=== PATIENT | female | born 1990 | race African-American/Black ===

== ENCOUNTER 2022-02-12 21:55 | Emergency (ER) | payer BC ==
[~2022-02-12] VITALS: Ht 157.5 cm; Wt 99.8 kg
[2022-02-12 22:01] VITALS: BP_SYST 128
--- NOTE | 2022-02-12 22:05 | NUR ---
BIB BLS TRANSPORT FOR SUDDEN ONSET OF CHEST PAIN, NON RADIATING AND NON PROVOKE. PT ALSO C/O ABDOMINAL PAIN, DENIES N/V/D, DENIES DYSURIA PMH:ASTHMA,GERG PT AAOX4, NO SOB NOTED AND NOT IN ANY DISTRESS ON ARRIVAL.
--- NOTE | 2022-02-12 22:05 | NUR ---
Patient to ER bed 02 to gown for evaluation. Side rails up.
--- NOTE | 2022-02-12 22:30 | NUR ---
Dr. Stevenson at bedside with patient.
[2022-02-12] MEDS ORDERED: PRO40 PO (22:58)
[2022-02-12] MEDS ORDERED: MAG HYDROX/AL HYDROX/SIMETH 30 ML, DICYCLOMINE HCL 20 MG, LIDOCAINE VISCOUS 2% 15ML (PO... PO ONE ×3 (23:00)
[2022-02-12] MEDS ORDERED: PANTOPRAZOLE SODIUM 40 MG TAB PO ONE (23:00)
[2022-02-12 23:10] VITALS: BP_SYST 128
--- NOTE | 2022-02-12 23:10 | NUR ---
Patient given written and verbal discharge instructions and verbalizes understanding. ER Dr. Vidales discussed with patient the results and treatment provided. Patient in stable condition. ID arm band removed. Rx of protonix given. Patient educated on pain management and to follow up with PMD. Pain Scale 0. Opportunity for questions provided and answered. Medication side effect fact sheet provided.
== END 2022-02-12 23:10 | disposition home or self-care (01) ==
LOC: SED 21:55
DX: R10.13 Epigastric pain (principal); Z79.899 Other long term (current) drug therapy
CPT/HCPCS: 99283; 71045; 93005; J2001

== ENCOUNTER 2022-03-04 17:51 | Emergency (ER) | payer BC ==
[~2022-03-04] VITALS: Ht 157.5 cm; Wt 94.8 kg
[~2022-03-04 17:51] MED LIST: PRO40 PO
[2022-03-04 18:02] VITALS: BP_SYST 126
--- NOTE | 2022-03-04 18:06 | NUR ---
Patient triaged and placed in waiting room. VSS and patient appears in no acute distress at this time. Accompanied by STAFF, awaiting available bed, and MD DR. RAMIREZ notified of need for MSE.
--- NOTE | 2022-03-04 19:28 | NUR ---
[facility]
--- NOTE | 2022-03-04 19:28 | NUR ---
ER at bedside examining patient.
[2022-03-04] MEDS ORDERED: DIPHENHYDRAMINE HCL 12.5 MG/5 ML UDC PO ONE (19:45)
[2022-03-04] MEDS ORDERED: predniSONE 20 MG TABLET PO ONE (19:45)
[2022-03-04] MEDS ORDERED: FAMOTIDINE 20 MG TABLET PO ONE (20:00)
[2022-03-04] MEDS ORDERED: MAG-AL HYDROX/SIMETH 30 ML UDC PO ONE (20:15)
[2022-03-04] MEDS: BELLADONNA ALKALOIDS/PHENOBARB 5 ML UDC PO ONE (20:23)
[2022-03-04] MEDS ORDERED: FAMO40TA7 PO (20:41)
--- NOTE | 2022-03-04 20:50 | NUR ---
Patient given written and verbal discharge instructions by Quynh and verbalizes understanding. ER MD discussed with patient the results and treatment provided. Patient in stable condition. ID arm band removed. Rx of Famotadine given. Patient educated on pain management and to follow up with PMD. Pain Scale 2/10. Opportunity for questions provided and answered. Medication side effect fact sheet provided.
[2022-03-04 20:54] VITALS: BP_SYST 125
== END 2022-03-04 20:54 | disposition home or self-care (01) ==
LOC: SED 17:51
DX: K21.9 Gastro-esophageal reflux disease without esophagitis (principal); R06.02 Shortness of breath; Z79.899 Other long term (current) drug therapy
CPT/HCPCS: 99284; J7512

== ENCOUNTER 2022-07-28 11:59 | Emergency (ER) | payer BC ==
[~2022-07-28] VITALS: Ht 157.5 cm; Wt 81.6 kg
[~2022-07-28 11:59] MED LIST changes: +FAMO40TA7 PO
[2022-07-28 12:09] VITALS: BP_SYST 146
--- NOTE | 2022-07-28 12:25 | NUR ---
Pt brought by self, A&Ox4, pt presents to ER with lower back pain and sore throat , pt states something may be wrong with her thyroid, pt HR 92, denies palpitations, skin pink and warm, cap refill <3, VSS, will cont to monitor.
--- NOTE | 2022-07-28 12:50 | NUR ---
MD DR YOU AT BEDSIDE
[2022-07-28] MEDS ORDERED: KETOROLAC TROMETHAMINE 60 MG/2 ML VIAL IM ONE (13:30)
[2022-07-28] MEDS ORDERED: OMEP40CA20 PO (13:53)
[2022-07-28] MEDS ORDERED: IBUP-1971 PO (13:53)
[2022-07-28] MEDS ORDERED: CIPR500T5 PO (13:53)
[2022-07-28 14:00] VITALS: BP_SYST 124
--- NOTE | 2022-07-28 14:02 | NUR ---
Patient given written and verbal discharge instructions and verbalizes understanding. ER MD DR YOU discussed with patient the results and treatment provided. Patient in stable condition. ID arm band removed. IV catheter removed intact and dressing applied, no active bleeding. Rx of CIPRO, MOTRIN, OMPERZOLE given. Patient educated on pain management and to follow up with PMD. Pain Scale 4/10. Opportunity for questions provided and answered. Medication side effect fact sheet provided.
== END 2022-07-28 14:02 | disposition home or self-care (01) ==
LOC: SED 11:59
DX: N39.0 Urinary tract infection, site not specified (principal); M54.50 Low back pain, unspecified; J02.9 Acute pharyngitis, unspecified; J45.909 Unspecified asthma, uncomplicated; K21.9 Gastro-esophageal reflux disease without esophagitis; Z91.040 Latex allergy status; Z88.8 Allergy status to other drugs, medicaments and biological substances; Z79.899 Other long term (current) drug therapy
CPT/HCPCS: 99283; 81002; 81025; 96372; J1885